=== PATIENT | male | born 1960 | race Caucasian/White ===

== ENCOUNTER → 2017-04-20 | Outpatient (CLI) | payer OTHER, BC ==
[~2017-04-20] MED LIST: ATOR-22 PO; FEXO1TAB46 PO; IRBE-37 PO; LOVAZA PO
[2017-04-20 18:00] LABS: URIC ACID 6.4 mg/dl (2.6-7.2)
== END | disposition home or self-care (01) ==
LOC: C.LAB 16:57
PROVIDERS: ATTEND Internal Medicine Rheumatology
DX: R78.89 Finding of other specified substances, not normally found in blood (principal)